=== PATIENT | male | born 2000 | race African-American/Black ===

== ENCOUNTER 2018-01-08 03:01 | Emergency (ER) | payer BC ==
[2018-01-08 04:02] LABS: Hematocrit 44 % (42-52); Hemoglobin 14.7 g/dl (14.0-18.0); Mean Corpuscular HGB Conc 34 g/dl (31-36); Mean Corpuscular Hemoglobin 31 pg (27-31); Mean Corpuscular Volume 92 fL (80-94); Mean Platelet Volume 8.6 um3 (7.4-10.4); Platelet Count 404 10^3/ul (150-450); Red Blood Count 4.77 10^6/ul (4.0-5.4); Red Cell Distribution Width 14 % (10.5-15); White Blood Count 9.4 10^3/ul (3.5-10.8)
[2018-01-08 04:12] LABS: ABS Basophils 0 10^3/ul (0-0.2); ABS Eosinophils 0.1 10^3/ul (0-0.6); ABS Lymphocytes 3.4 10^3/ul (1.0-4.8); ABS Monocytes 1.5 10^3/ul (0-0.8); ABS Neutrophils 4.3 10^3/ul (1.5-7.7); EGFR Non-African American 108.7 (>60)
[2018-01-08 04:16] LABS: Urine Appearance Clear; Urine Blood Negative (Negative); Urine Color Yellow; Urine Ketones Negative (Negative); Urine Protein Negative (Negative); Urine Specific Gravity 1.008 (1.010-1.030); Urine Urobilinogen Negative (Negative)
[2018-01-08 04:41] LABS: ABS Nucleated RBC 0 10^3/ul; Lymphocyte % 36.8 % (25-47); Nucleated Red Blood Cells % 0
--- NOTE | 2018-01-08 09:43 | PN ---
ED Flex Patient Progress Note Date of Service: 01/08/18 Subjective: This is a 17 year-old M who is pending consultation by Dr Blank and being observed secondary to suicidal ideation. Pt offers no complaints at this time and is sleeping/eating well. Objective: Vitals: Most recent vital signs documented below. General NAD, Alert and oriented x3. Heart: rrr at 70bpm Lungs: CTA or with rales, rhonchi, wheezing Laboratory: Current laboratory results documented below. Assessment: suicidal ideation pending psych consult by Dr Blank Plan: Pending psychiatric consultation to determine disposition by Dr Blank. will follow up daily. Vital Signs Temp Pulse Resp BP Pulse Ox 98.0 F 68 16 141/70 100 01/08/18 06:03 01/08/18 06:03 01/08/18 06:03 01/08/18 06:03 01/08/18 06:03 Lab Results - Entire Visit 01/08/18 01/08/18 01/08/18 03:13 03:13 03:13 WBC 9.4 RBC 4.77 Hgb 14.7 Hct 44 MCV 92 MCH 31 MCHC 34 RDW 14 Plt Count 404 MPV 8.6 Neut % (Auto) 45.4 Lymph % (Auto) 36.8 [place] % (Auto) 16.3 H Eos % (Auto) 1.0 Baso % (Auto) 0.5 Absolute Neuts (auto) 4.3 Absolute Lymphs (auto) 3.4 Absolute Monos (auto) 1.5 H Absolute Eos (auto) 0.1 Absolute Basos (auto) 0 Absolute Nucleated RBC 0 Nucleated RBC % 0 Large Platelets Present Giant Platelets Present Sodium Potassium Chloride Carbon Dioxide Anion Gap BUN Creatinine Est GFR ( Amer) Est GFR (Non-Af Amer) BUN/Creatinine Ratio Glucose Calcium Total Bilirubin AST ALT Alkaline Phosphatase Total Protein Albumin Globulin Albumin/Globulin Ratio TSH Urine Color Yellow Urine Appearance Clear Urine pH 7.0 Ur Specific [place] 1.008 L Urine Protein Negative Urine Ketones Negative Urine Blood Negative Urine Nitrate Negative Urine Bilirubin Negative Urine Urobilinogen Negative Ur Leukocyte Esterase Negative Urine Glucose Negative Salicylates Urine Opiates Screen None detected Acetaminophen Ur Barbiturates Screen None detected Ur Phencyclidine Scrn None detected Ur Amphetamines Screen None detected U Benzodiazepines Scrn None detected Learned Urine Cocaine Screen None detected U Cannabinoids Screen None detected Serum Alcohol 01/08/18 03:13 WBC RBC Hgb Hct MCV MCH MCHC RDW Plt Count MPV Neut % (Auto) Lymph % (Auto) [place] % (Auto) Eos % (Auto) Baso % (Auto) Absolute Neuts (auto) Absolute Lymphs (auto) Absolute Monos (auto) Absolute Eos (auto) Absolute Basos (auto) Absolute Nucleated RBC Nucleated RBC % Large Platelets Giant Platelets Sodium 138 L Potassium 3.7 Chloride 106 Carbon Dioxide 25 Anion Gap 7 BUN 9 Creatinine 0.90 Est GFR ( Amer) 139.8 Est GFR (Non-Af Amer) 108.7 BUN/Creatinine Ratio 10.0 Glucose 106 H Calcium 9.8 Total Bilirubin 0.70 AST 25 ALT 22 Alkaline Phosphatase 75 Total Protein 7.6 Albumin 4.5 Globulin 3.1 Albumin/Globulin Ratio 1.5 TSH 4.39 Urine Color Urine Appearance Urine pH Ur Specific [place] Urine Protein Urine Ketones Urine Blood Urine Nitrate Urine Bilirubin Urine Urobilinogen Ur Leukocyte Esterase Urine Glucose Salicylates < 2.50 Urine Opiates Screen Acetaminophen < 15 Ur Barbiturates Screen Ur Phencyclidine Scrn Ur Amphetamines Screen U Benzodiazepines Scrn Learned < 0.10 L Urine Cocaine Screen U Cannabinoids Screen Serum Alcohol < 10
--- NOTE | 2018-01-08 19:10 | ED ---
Ismael Srinivasan Stephanie, scribed for Rema Pedroza MD on 01/08/18 at 033 . Psychiatric Complaint - HPI Summary HPI Summary: The pt is a 17 y/o M BIB police to the ED with c/o OD on Zirtek at 02:00 today. The pt states he took the pills because he wanted to . He states I do stupid stuff like this all the time. The pt states his mom was not going to call the police or ambulance until he left the house to go for a walk, in which she called the police. The pt has hx of depression. - History Of Current Complaint Chief Complaint: EDMentalHealth Time Seen by Provider: 01/08/18 03:06 Hx Obtained From: Patient Onset/Duration: Sudden Onset, Lasting Hours, Still Present Timing: Constant Severity Currently: Mild Character: Depressed Aggravating Factor(s): Nothing Alleviating Factor(s): Nothing Related History: Positive For: Prior Psychiatric Issues Has Suicidal: Reports: Thoughts, Has Prior Attempt(s) Ingestion History: Type/Name Of Drug - 17-20 tabs Zyrtec - Allergies/Home Medications Allergies/Adverse Reactions: Allergies Allergy/AdvReac Type Severity Reaction Status Date / Time No Known Allergies Allergy Verified 01/08/18 03:53 PMH/Surg Hx/FS Hx/Imm Hx Opthamlomology History: Denies: Hx Legally Blind EENT History: Denies: Hx Deafness Psychiatric History: Reports: Hx Depression - Surgical History Surgery Procedure, Year, and Place: NONE Infectious Disease History: No Infectious Disease History: Denies: Traveled Outside the [place] in Last 30 Days - Family History Known Family History: Positive: Unknown - The pt denies any relevant fhx. - Social History Occupation: Student Lives: With Family Alcohol Use: Occasionally Hx Substance Use: Yes Substance Use Type: Reports: Marijuana Hx Tobacco Use: No Smoking Status (MU): Never Smoked Tobacco Have You Smoked in the Last Year: No Review of Systems Negative: Fever Negative: Slurred Speech Positive: Depressed, Other - SI statesment- "I wanted to " All Other Systems Reviewed And Are Negative: Yes Physical Exam - Summary Physical Exam Summary: VITAL SIGNS: Reviewed. GENERAL: Patient is a well-developed and nourished MALE who is lying comfortable in the stretcher. Patient is not in any acute respiratory distress. HEAD AND FACE: No signs of trauma. No ecchymosis, hematomas or skull depressions. No sinus tenderness. EYES: PERRLA, EOMI x 2, No injected conjunctiva, no nystagmus. EARS: Hearing grossly intact. Ear canals and tympanic membranes are within normal limits. MOUTH: Oropharynx within normal limits. NECK: Supple, trachea is midline, no adenopathy, no JVD, no carotid bruit, no c- spine tenderness, neck with full ROM. CHEST: Symmetric, no tenderness at palpation LUNGS: Clear to auscultation bilaterally. No wheezing or crackles. CVS: Regular rate and rhythm, S1 and S2 present, no murmurs or gallops appreciated. ABDOMEN: Soft, non-tender. No signs of distention. No rebound no guarding, and no masses palpated. Bowel sounds are normal. EXTREMITIES: FROM in all major joints, no edema, no cyanosis or clubbing. NEURO: Alert and oriented x 3. No acute neurological deficits. Speech is normal and follows commands. SKIN: Dry and warm PSYCH: SI statement Triage Information Reviewed: Yes Vital Signs On Initial Exam: Initial Vitals Temp Pulse Resp BP Pulse Ox 98.8 F 80 20 164/96 98 01/08/18 03:05 01/08/18 03:05 01/08/18 03:05 01/08/18 03:05 01/08/18 03:05 Vital Signs Reviewed: Yes Diagnostics - Vital Signs Vital Signs Temp Pulse Resp BP Pulse Ox 01/08/18 03:05 98.8 F 80 20 164/96 98 - Laboratory Lab Results: Lab Results 01/08/18 01/08/18 01/08/18 Range/Units 03:13 03:13 03:13 WBC 9.4 (3.5-10.8) 10^3/ul RBC 4.77 (4.0-5.4) 10^6/ul Hgb 14.7 (14.0-18.0) g/dl Hct 44 (42-52) % MCV 92 (80-94) fL MCH 31 (27-31) pg MCHC 34 (31-36) g/dl RDW 14 (10.5-15) % Plt Count 404 (150-450) 10^3/ul MPV 8.6 (7.4-10.4) um3 Neut % (Auto) 45.4 (38-83) % Lymph % (Auto) 36.8 (25-47) % [place] % (Auto) 16.3 H (0-7) % Eos % (Auto) 1.0 (0-6) % Baso % (Auto) 0.5 (0-2) % Absolute Neuts (auto) 4.3 (1.5-7.7) 10^3/ul Absolute Lymphs (auto) 3.4 (1.0-4.8) 10^3/ul Absolute Monos (auto) 1.5 H (0-0.8) 10^3/ul Absolute Eos (auto) 0.1 (0-0.6) 10^3/ul Absolute Basos (auto) 0 (0-0.2) 10^3/ul Absolute Nucleated RBC 0 10^3/ul Nucleated RBC % 0 Large Platelets Present Giant Platelets Present Sodium 138 L (139-145) mmol/L Potassium 3.7 (3.5-5.0) mmol/L Chloride 106 (101-111) mmol/L Carbon Dioxide 25 (22-32) mmol/L Anion Gap 7 (2-11) mmol/L BUN 9 (6-24) mg/dL Creatinine 0.90 (0.67-1.17) mg/dL Est GFR ( Amer) 139.8 (>60) Est GFR (Non-Af Amer) 108.7 (>60) BUN/Creatinine Ratio 10.0 (8-20) Glucose 106 H (70-100) mg/dL Calcium 9.8 (8.6-10.3) mg/dL Total Bilirubin 0.70 (0.2-1.0) mg/dL AST 25 (13-39) U/L ALT 22 (7-52) U/L Alkaline Phosphatase 75 (34-104) U/L Total Protein 7.6 (6.4-8.9) g/dL Albumin 4.5 (3.2-5.2) g/dL Globulin 3.1 (2-4) g/dL Albumin/Globulin Ratio 1.5 (1-3) TSH 4.39 (0.34-5.60) mcIU/mL Urine Color Urine Appearance Urine pH (5-9) Ur Specific [place] (1.010-1.030) Urine Protein (Negative) Urine Ketones (Negative) Urine Blood (Negative) Urine Nitrate (Negative) Urine Bilirubin (Negative) Urine Urobilinogen (Negative) Ur Leukocyte Esterase (Negative) Urine Glucose (Negative) Salicylates < 2.50 (<30) mg/dL Urine Opiates Screen None detected (None Detect) Acetaminophen < 15 mcg/mL Ur Barbiturates Screen None detected (None Detect) Ur Phencyclidine Scrn None detected (None Detect) Ur Amphetamines Screen None detected (None Detect) U Benzodiazepines Scrn None detected (None Detect) [place] < 0.10 L (0.6-1.2) mmol/L Urine Cocaine Screen None detected (None Detect) U Cannabinoids Screen None detected (None Detect) Serum Alcohol < 10 (<10) mg/dL 01/08/18 Range/Units 03:13 WBC (3.5-10.8) 10^3/ul RBC (4.0-5.4) 10^6/ul Hgb (14.0-18.0) g/dl Hct (42-52) % MCV (80-94) fL MCH (27-31) pg MCHC (31-36) g/dl RDW (10.5-15) % Plt Count (150-450) 10^3/ul MPV (7.4-10.4) um3 Neut % (Auto) (38-83) % Lymph % (Auto) (25-47) % [place] % (Auto) (0-7) % Eos % (Auto) (0-6) % Baso % (Auto) (0-2) % Absolute Neuts (auto) (1.5-7.7) 10^3/ul Absolute Lymphs (auto) (1.0-4.8) 10^3/ul Absolute Monos (auto) (0-0.8) 10^3/ul Absolute Eos (auto) (0-0.6) 10^3/ul Absolute Basos (auto) (0-0.2) 10^3/ul Absolute Nucleated RBC 10^3/ul Nucleated RBC % Large Platelets Giant Platelets Sodium (139-145) mmol/L Potassium (3.5-5.0) mmol/L Chloride (101-111) mmol/L Carbon Dioxide (22-32) mmol/L Anion Gap (2-11) mmol/L BUN (6-24) mg/dL Creatinine (0.67-1.17) mg/dL Est GFR ( Amer) (>60) Est GFR (Non-Af Amer) (>60) BUN/Creatinine Ratio (8-20) Glucose (70-100) mg/dL Calcium (8.6-10.3) mg/dL Total Bilirubin (0.2-1.0) mg/dL AST (13-39) U/L ALT (7-52) U/L Alkaline Phosphatase (34-104) U/L Total Protein (6.4-8.9) g/dL Albumin (3.2-5.2) g/dL Globulin (2-4) g/dL Albumin/Globulin Ratio (1-3) TSH (0.34-5.60) mcIU/mL Urine Color Yellow Urine Appearance Clear Urine pH 7.0 (5-9) Ur Specific [place] 1.008 L (1.010-1.030) Urine Protein Negative (Negative) Urine Ketones Negative (Negative) Urine Blood Negative (Negative) Urine Nitrate Negative (Negative) Urine Bilirubin Negative (Negative) Urine Urobilinogen Negative (Negative) Ur Leukocyte Esterase Negative (Negative) Urine Glucose Negative (Negative) Salicylates (<30) mg/dL Urine Opiates Screen (None Detect) Acetaminophen mcg/mL Ur Barbiturates Screen (None Detect) Ur Phencyclidine Scrn (None Detect) Ur Amphetamines Screen (None Detect) U Benzodiazepines Scrn (None Detect) [place] (0.6-1.2) mmol/L Urine Cocaine Screen (None Detect) U Cannabinoids Screen (None Detect) Serum Alcohol (<10) mg/dL Result Diagrams: 01/08/18 03:13 01/08/18 03:13 Lab Statement: Any lab studies that have been ordered have been reviewed, and results considered in the medical decision making process. - EKG 03:51 Cardiac Rate: NL EKG Rhythm: Sinus Rhythm - 67 BPM EKG Interpretation: Normal axis. Normal interval. No ischemic changes Course/Dx - Course Course Of Treatment: The pt is a 17 y/o M BIB police to the ED with c/o OD on Zirtek at 02:00 today. The pt states he took the pills because he wanted to . He states I do stupid stuff like this all the time. The pt states his mom was not going to call the police or ambulance until he left the house to go for a walk, in which she called the police. The pt has hx of depression. At 04:39, ED physician medically cleared the pt. - Differential Dx/Clinical Impression Provider Diagnosis: Suicidal ideation Discharge - Sign-Out/Discharge Documenting (check all that apply): Sign-Out Patient Signing out patient TO: Jasvir Cuevas - Pending MHE. - Discharge Plan Condition: Stable Referrals: Moni Morillo MD [Primary Care Provider] - - Billing Disposition and Condition Condition: STABLE The documentation as recorded by the Ismael hicks Stephanie accurately reflects the service I personally performed and the decisions made by me, Rema Pedroza MD.
[2018-01-08] MEDS: lamoTRIgine TAB(*) 100 MG PO SCH (20:19)
--- NOTE | 2018-01-09 08:57 | PN ---
ED Flex Patient Progress Note Date of Service: 01/09/18 Subjective: This is a 17 year-old M who is pending admission to [facility] secondary to SI. Pt offers no complaints at this time. He slept okay. Objective: Vitals: Most recent vital signs documented below. General NAD, Alert and oriented x3. Heart: rrr at 70 bpm Lungs: CTA or with rales, rhonchi, wheezing abd: soft nontender Laboratory: Current laboratory results documented below. Assessment: SI Plan: Pending psychiatric to admit when bed opens up will follow up daily until disposition made. Condition:Stable Disposition: admitted Vital Signs Temp Pulse Resp BP Pulse Ox 99.0 F 75 15 127/72 100 01/08/18 20:25 01/08/18 20:25 01/08/18 20:25 01/08/18 20:25 01/08/18 20:25 Lab Results - Entire Visit 01/08/18 01/08/18 01/08/18 03:13 03:13 03:13 WBC 9.4 RBC 4.77 Hgb 14.7 Hct 44 MCV 92 MCH 31 MCHC 34 RDW 14 Plt Count 404 MPV 8.6 Neut % (Auto) 45.4 Lymph % (Auto) 36.8 [place] % (Auto) 16.3 H Eos % (Auto) 1.0 Baso % (Auto) 0.5 Absolute Neuts (auto) 4.3 Absolute Lymphs (auto) 3.4 Absolute Monos (auto) 1.5 H Absolute Eos (auto) 0.1 Absolute Basos (auto) 0 Absolute Nucleated RBC 0 Nucleated RBC % 0 Large Platelets Present Giant Platelets Present Sodium Potassium Chloride Carbon Dioxide Anion Gap BUN Creatinine Est GFR ( Amer) Est GFR (Non-Af Amer) BUN/Creatinine Ratio Glucose Calcium Total Bilirubin AST ALT Alkaline Phosphatase Total Protein Albumin Globulin Albumin/Globulin Ratio TSH Urine Color Yellow Urine Appearance Clear Urine pH 7.0 Ur Specific [place] 1.008 L Urine Protein Negative Urine Ketones Negative Urine Blood Negative Urine Nitrate Negative Urine Bilirubin Negative Urine Urobilinogen Negative Ur Leukocyte Esterase Negative Urine Glucose Negative Salicylates Urine Opiates Screen None detected Acetaminophen Ur Barbiturates Screen None detected Ur Phencyclidine Scrn None detected Ur Amphetamines Screen None detected U Benzodiazepines Scrn None detected [place] Urine Cocaine Screen None detected U Cannabinoids Screen None detected Serum Alcohol 01/08/18 03:13 WBC RBC Hgb Hct MCV MCH MCHC RDW Plt Count MPV Neut % (Auto) Lymph % (Auto) [place] % (Auto) Eos % (Auto) Baso % (Auto) Absolute Neuts (auto) Absolute Lymphs (auto) Absolute Monos (auto) Absolute Eos (auto) Absolute Basos (auto) Absolute Nucleated RBC Nucleated RBC % Large Platelets Giant Platelets Sodium 138 L Potassium 3.7 Chloride 106 Carbon Dioxide 25 Anion Gap 7 BUN 9 Creatinine 0.90 Est GFR ( Amer) 139.8 Est GFR (Non-Af Amer) 108.7 BUN/Creatinine Ratio 10.0 Glucose 106 H Calcium 9.8 Total Bilirubin 0.70 AST 25 ALT 22 Alkaline Phosphatase 75 Total Protein 7.6 Albumin 4.5 Globulin 3.1 Albumin/Globulin Ratio 1.5 TSH 4.39 Urine Color Urine Appearance Urine pH Ur Specific [place] Urine Protein Urine Ketones Urine Blood Urine Nitrate Urine Bilirubin Urine Urobilinogen Ur Leukocyte Esterase Urine Glucose Salicylates < 2.50 Urine Opiates Screen Acetaminophen < 15 Ur Barbiturates Screen Ur Phencyclidine Scrn Ur Amphetamines Screen U Benzodiazepines Scrn [place] < 0.10 L Urine Cocaine Screen U Cannabinoids Screen Serum Alcohol < 10
[2018-01-09] MEDS: lamoTRIgine TAB(*) 100 MG PO SCH (10:04)
[2018-01-09 11:07] VITALS: BP 147/83
--- NOTE | 2018-01-10 01:10 | ED ---
Kolby Srinivasan Abhishek, scribed for Rema Pedroza MD on 01/09/18 at 0709 . Progress - Progress Note Progress Note: The pt is pending a MHE and will be signed out to Dr. Cuevas. - Consult/PCP Time Called: 04:43 Course/Dx - Course Course Of Treatment: The Pt is pending disposition and MHE and will be signed out to Dr. Cuevas. - Diagnoses Provider Diagnoses: Depression Discharge - Sign-Out/Discharge Documenting (check all that apply): Sign-Out Patient, Receiving Sign-Out Signing out patient TO: Jasvir Cuevas Receiving patient FROM: Jasvir Cuevas - Discharge Plan Condition: Stable Discharge Disposition Comment: Signed out to Dr. Cuevas Referrals: Moni Morillo MD [Primary Care Provider] - The documentation as recorded by the Kolby hicks Abhishek accurately reflects the service I personally performed and the decisions made by Kasia engle Abdul, MD.
--- NOTE | 2018-01-10 12:03 | ED ---
Shalom Srinivasan Angela, scribed for Jasvir Cuevas MD on 01/09/18 at 1139 . Progress - Progress Note Progress Note: This pt was signed out by Dr. Pedroza, pending disposition, awaiting MHE. Pt was evaluated by the mental health group product manager and Dr. lBank. Dr. Blank and Heather Kruger NP feel comfortable discharging the pt home. Dr. Blank states the pt is low risk for suicide since he is being discharged home with his mother. However I still have concerns since yesterdays assessment of the pt was that he was suicidal and today the pt is being discharged home. However, the pt after mental health evaluation today reports he is not suicidal, and therefore Dr. Blank and Heather Kruger NP believe the pt can be discharged home safely. Dr. Pedroza did the medical clearance of the pt and Dr. Blank did the psychiatric clearance. Pt will be discharged home with mother, in stable condition, with a diagnosis of adjustment disorder. Course/Dx - Diagnoses Provider Diagnoses: Adjustment disorder Discharge - Sign-Out/Discharge Documenting (check all that apply): Discharge - discharge to home - Discharge Plan Condition: Stable Disposition: HOME Referrals: Moni Morillo MD [Primary Care Provider] - The documentation as recorded by the Shalom hicks Angela accurately reflects the service I personally performed and the decisions made by , Jasvir Cuevas MD.
--- NOTE | 2018-01-10 12:04 | ED ---
Shalom Srinivasan Angela, scribed for Jasvir Cuevas MD on 01/08/18 at 1845 . Progress - Progress Note Progress Note: This pt was signed out by Dr. Pedroza, pending disposition, awaiting MHE. At this time pt is still awaiting the mental health evaluation. Pt continues to be stable. Therefore pt will be signed out to Dr. Pedroza, pending disposition, awaiting MHE. Course/Dx - Diagnoses Provider Diagnoses: Depression Discharge - Sign-Out/Discharge Documenting (check all that apply): Sign-Out Patient, Receiving Sign-Out Signing out patient TO: Rema Pedroza Receiving patient FROM: Rema Pedroza - Discharge Plan Condition: Stable Discharge Disposition Comment: signed out to Dr. Cuevas, pending dispo, awaiting MHE Referrals: Moni Morillo MD [Primary Care Provider] - The documentation as recorded by the Shalom hicks Angela accurately reflects the service I personally performed and the decisions made by , Jasvir Cuevas MD.
--- NOTE | 2018-01-10 12:08 | PN ---
Subjective - Subjective Service Type: 44610 Hosp care 15 min low complexity Subjective: Carlos is found lying in bed in the dark. He disagrees with the assessment that he must be admitted. he makes the case for his birthday coming up and he doesn't want to miss it. he also states, "I'm always suicidal. Nothing's going to change that. I've been in residential for 4.5 years." Carlos's mother does not want him to be admitted and Carlos does not want that either. He will be discharged due to not fully meeting criteria for admission. Objective - Appearance Appearance: Healthy Appearing Dysmorphic Features: No Hygiene: Normal Grooming: Fairly Well Kept - Behavior Psychomotor Activities: Normal Exhibits Abnormal Movement: No - Attitude and Relatedness Attitude and Relatedness: Dismissive Eye Contact: Poor - Speech Quality: Unpressured Latencies: Normal Quantity: Appropriate - Mood Patient's Decription of Mood: "Okay" - Affect Observed Affect: Constricted Affect Consistent with: Dysphoria - Thought Process Patient's Thought Process: Goal Directed Thought Content: No Passive Wish, No Suicidal Planning, No Homicidal Ideation, No Paranoid Ideation - Sensorium Experiencing Hallucinations: No, Sensorium is Clear Type of Hallucinations: Visual: No, Auditory: No, Command: No - Level of Consciousness Level of Consciousness: Lethargic Orientation: Yes Intact, Yes Orientated to Time, Yes Orientated to Place, Yes Orientated to Person - Impulse Control Impulse Control: Impaired - Insight and Judgement Insight and Judgement: Impaired - Additional Observations Comments: Found in Flex unit resting in bed. He does not want to be here and is dismissive of me. He is slightly inconsistent saying he is always suicidal, rarely suicidal, and suicidal just yesterday. He denies hallucinations. He eventually denies suicidal thoughts today. Plan - Plan Treatment Plan: Name: [facility] Birthdate: 2000 [id number] Medications: Current Medications Lamotrigine (Lamictal Tab(*)) 100 mg PO BID [place] Last Admin: 01/09/18 10:04 Dose: 100 mg
== END 2018-01-09 12:54 | disposition home or self-care (01) ==
LOC: ED 03:01
DX: R45.851 Suicidal ideations (principal); T50.992A Poisoning by other drugs, medicaments and biological substances, intentional self-harm, initial encounter; Y92.009 Unspecified place in unspecified non-institutional (private) residence as the place of occurrence of the external cause; F32.9 Major depressive disorder, single episode, unspecified
CPT/HCPCS: 36415; 80053; 80178; 80307; 80320; 80329; 81003; 84443; 85025; 99283; A9270-GY; G0480

== ENCOUNTER 2019-08-08 02:11 | Emergency (ER) | payer OTHER ==
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
[2019-08-08 03:01] VITALS: BP 147/88
== END 2019-08-08 03:09 | disposition home or self-care (01) ==
LOC: ED 02:11
DX: F10.929 Alcohol use, unspecified with intoxication, unspecified (principal); F32.9 Major depressive disorder, single episode, unspecified
CPT/HCPCS: 99283